=== PATIENT | female | born 1940 | race Caucasian/White ===

== ENCOUNTER 2017-06-30 11:22 | Emergency (ER) | payer MEDICARE ==
[~2017-06-30] VITALS: Ht 157.5 cm; Wt 50.0 kg
[~2017-06-30 11:22] MED LIST: (None)10 MG OR; ADVIL200 MG PO; ALLERGY RELIEF25 MG PO; ALTACE10 MG OR; AMBIEN10 MG OR; AMLODIPINE BESYL5 MG PO; AMLODIPINE2.5 MG PO; ANTI-DIARRHE2 M1 PO; ANTI-DIARRHEAL2 MG PO; APRESOLINE25 MG/TAB PO; ASPIRIN LOW DOS81 M1 PO; ASPIRIN LOW DOS81 M2 PO; ASPIRIN325 MG PO; ASPIRIN81 MG PO; ATENOL/CHLOR1 TA2 PO; ATENOLOL25 MG PO; ATENOLOL50 MG PO; ATORVASTATIN CA20 MG PO; B-12-SL1000 MCG SL; BENTYL10 MG PO; CHERATUSSIN PO; CHLORTHALID25 MG PO; CHOLESTYRAMINE4 G1 PO; CIPROFLOXACN500 MG PO; CLARITIN10 M1 PO; CLONIDINE0.1 MG PO; CLOPIDOGREL75 MG PO; COZAAR50 MG PO; FIBER SELECT GUMMIES OR; FIBER SELECT GUMMIES PO; FLAGYL500 MG PO; FLORASTOR250 M1 PO; HYDROCHLOROT12.5 MG PO; HYDROCHLOROT25 MG PO; HYDROXYZ HCL25 MG PO; IMODIUM2 MG PO; IRON325 MG PO; LISINOP/HCTZ1 TA1 PO; LISINOP/HCTZ1 TAB OR; LISINOP/HCTZ1 TAB PO; LISINOPRIL10 MG PO; LISINOPRIL20 M1 PO; LISINOPRIL20 MG PO; LOMOTIL2.5 MG PO; LORTAB 5 OR; LORTAB 7.57.5 MG PO; LORTAB5 PO; LOSARTAN POT25 MG PO; MELOXICAM7.5 MG PO; METRONIDAZOL500 MG PO; MULT VITAMI1 OR; NEXIUM40 M1 PO; OYSTER SHELL C500 M1 PO; PERCOCET 10/31 COMBO PO; PRILOSEC20 MG/CAP PO; PROBIOTIC PO; PROMETHAZINE25 MG OR; SOLU-MEDROL125 MG IM; TRAMADOL HYDROC50 MG PO; TRIAMCINOLON0.11 EX; ULTRAM50 M1 PO; VANCOCIN HCL125 MG OR; VITAMIN D2000 UNI1 PO; XARELTO10 MG PO; ZESTRIL10 M1 PO; ZYRTEC10 MG PO
[2017-06-30 11:55] LABS: HEMATOCRIT 42.2 % (37.0-47.0); HEMOGLOBIN 14.4 g/dl (12.0-16.0); IMMATURE GRANULOCYTES 0.4 % (0.0-1.0); MEAN CELL VOLUME 86.8 fL CALC (80.0-100.0); MEAN CORPUSCULAR HGB 29.6 pG CALC (26.0-32.0); MEAN CORPUSCULAR HGB CONC 34.1 g/L CALC (32.0-36.0); NEUT# 4.97 thou/uL (2.00-7.15); RED BLOOD COUNT 4.86 mill/uL (4.20-5.60); RED CELL DISTRI WIDTH 13.6 % (11.5-15.5)
[2017-06-30 12:08] LABS: ALBUMIN 4.8 g/dL (3.2-5.0); ALKALINE PHOSPHATASE 129 u/l (38-126); ANION GAP 18 (6-22 (CALC)); BILIRUBIN, TOTAL 0.7 mg/dL (0.0-1.4); BUN 16 mg/dL (8-23); BUN/CREATININE RATIO 20 (12-20 (CALC)); CALCIUM 10.2 mg/dL (8.4-10.2); CARBON DIOXIDE 22 mmol/l (22-30); CHLORIDE 103 mmol/l (95-108); CREATININE 0.8 mg/dL (0.5-1.0); GFR > 60 ML/MIN (>=60 (CALC)); GFR FOR AFR.AMER. > 60 ML/MIN (>=60 (CALC)); GLUCOSE 97 mg/dL (82-115); POTASSIUM 3.7 mmol/l (3.5-5.1); SGOT/AST 27 u/l (9-36); SGPT/ALT 28 u/l (11-66); SODIUM 139 mmol/l (137-146); TOTAL PROTEIN 8.3 g/dL (6.3-8.2)
[2017-06-30 12:20] LABS: MYOGLOBIN 17 ng/mL (0 - 62)
[2017-06-30 14:23] VITALS: BP 226/106
== END 2017-06-30 14:23 | disposition home or self-care (01) ==
LOC: ED 11:22
PROVIDERS: Emergency Medicine
DX: I10 Essential (primary) hypertension (principal); R94.31 Abnormal electrocardiogram [ECG] [EKG]; R01.1 Cardiac murmur, unspecified; Z91.14 Patient's other noncompliance with medication regimen; Z86.73 Personal history of transient ischemic attack (TIA), and cerebral infarction without residual deficits

== ENCOUNTER 2018-04-10 19:32 | Emergency (ER) | payer MEDICARE ==
[~2018-04-10] VITALS: Ht 157.5 cm; Wt 63.0 kg
[2018-04-10] MEDS ORDERED: AMLODIPINE5 MG PO (19:44)
[2018-04-10] MEDS ORDERED: CHLORTHALID25 MG PO (19:44)
[2018-04-10 20:34] VITALS: BP 128/78
== END 2018-04-10 20:35 | disposition home or self-care (01) ==
LOC: ED 19:32
DX: S90.01XA Contusion of right ankle, initial encounter (principal); X58.XXXA Exposure to other specified factors, initial encounter; M79.604 Pain in right leg

== ENCOUNTER → 2019-01-21 | Outpatient (REF) | payer MEDICARE ==
[~2019-01-21] MED LIST changes: +AMLODIPINE5 MG PO
[2019-01-21 08:55] LABS: ALBUMIN 4.4 g/dL (3.2-5.0); ALKALINE PHOSPHATASE 114 u/l (38-126); ANION GAP 15 (6-22 (CALC)); BILIRUBIN, TOTAL 0.8 mg/dL (0.0-1.4); BUN 16 mg/dL (8-23); BUN/CREATININE RATIO 20 (12-20 (CALC)); CALCULATED LDLCHOLESTEROL 129 mg/dL (62-129 (CALC)); CARBON DIOXIDE 26 mmol/l (22-30); CHLORIDE 104 mmol/l (95-108); CHOLESTEROL HDL RATIO 3.3 (<4.4 (CALC)); CREATININE 0.8 mg/dL (0.5-1.0); GFR > 60 ML/MIN (>=60 (CALC)); GFR FOR AFR.AMER. > 60 ML/MIN (>=60 (CALC)); HDL CHOLESTEROL 68 mg/dL (>=40); POTASSIUM 4.1 mmol/l (3.5-5.1); SGOT/AST 18 u/l (9-36); SODIUM 141 mmol/l (137-146); TOTAL CHOLESTEROL 226 mg/dl (0-199); TOTAL PROTEIN 7.2 g/dL (6.3-8.2); TOTAL TRIGLYCERIDES 146 mg/dl (30-149); VLDL CHOLESTROL 29 mg/dl (0-48 (CALC))
[2019-01-21 09:23] LABS: TSH, 3RD GENERATION 2.76 uIU/mL (0.47 - 4.68)
== END | disposition home or self-care (01) ==
LOC: LAB 07:18
PROVIDERS: ATTEND Internal Medicine
DX: E55.9 Vitamin D deficiency, unspecified (principal); E78.00 Pure hypercholesterolemia, unspecified

== ENCOUNTER 2019-11-05 18:31 | Emergency (ER) | payer MEDICARE ==
[~2019-11-05] VITALS: Ht 157.5 cm; Wt 80.0 kg
[2019-11-05 19:13] LABS: URINE BILIRUBIN - DIPSTICK NEGATIVE (NEGATIVE); URINE BLOOD DIPSTICK SMALL (NEGATIVE); URINE COLOR YELLOW; URINE GLUCOSE - DIPSTICK NEGATIVE (NEGATIVE); URINE KETONE 15 mg/dL (NEGATIVE); URINE NITRITE - DIPSTICK NEGATIVE (Negative); URINE PH 6.5 (4.5-8.0); URINE PROTEIN - DIPSTICK TRACE mg/dL (NEG-TRACE); URINE UROBILINOGEN - DIPSTICK 0.2 E.U./dL (0.2)
[2019-11-05 19:20] LABS: URINE LEUK ESTERASE MODERATE (NEGATIVE)
[2019-11-05 19:27] LABS: URINE SQUAMOUS EPITHELIAL CELL FEW EPI/hpf (0-FEW); URINE WBC 20-50 WBC/hpf (0-5)
[2019-11-05 19:28] LABS: URINE BACTERIA MANY hpf
[2019-11-05] MEDS ORDERED: TOPROL XL25 MG PO (19:32)
[2019-11-05] MEDS ORDERED: KEFLEX500 M1 PO (19:54)
[2019-11-05 20:10] VITALS: BP 127/75
== END 2019-11-05 20:10 | disposition home or self-care (01) ==
LOC: ED 18:31
DX: N39.0 Urinary tract infection, site not specified (principal); I10 Essential (primary) hypertension; B96.20 Unspecified Escherichia coli [E. coli] as the cause of diseases classified elsewhere

== ENCOUNTER 2021-02-12 15:41 | Emergency (ER) | payer MEDICARE ==
[~2021-02-12] VITALS: Ht 160 cm; Wt 61.3 kg
[~2021-02-12 15:41] MED LIST changes: +KEFLEX500 M1 PO; +TOPROL XL25 MG PO
[2021-02-12 16:35] LABS: HEMATOCRIT 42.2 % (37.0-47.0); IMMATURE GRANULOCYTES 0.8 % (0.0-5.0); MEAN CELL VOLUME 92.7 fL CALC (80.0-100.0); MEAN CORPUSCULAR HGB 30.8 pG CALC (26.0-32.0); MEAN CORPUSCULAR HGB CONC 33.2 g/dL CAL (32.0-36.0); NEUT# 5.93 thou/uL (2.00-7.15); RED BLOOD COUNT 4.55 mill/uL (4.20-5.60)
[2021-02-12 16:46] LABS: ALBUMIN 4.9 g/dL (3.2-5.0); ALKALINE PHOSPHATASE 123 u/l (38-126); ANION GAP 17 (6-22 (CALC)); BILIRUBIN, TOTAL 0.7 mg/dL (0.0-1.4); BUN 24 mg/dL (8-23); BUN/CREATININE RATIO 19 (12-20 (CALC)); CARBON DIOXIDE 19 mmol/l (22-30); CHLORIDE 104 mmol/l (95-108); CREATININE 1.3 mg/dL (0.5-1.0); GFR 40 ML/MIN (>=60 (CALC)); GFR FOR AFR.AMER. 48 ML/MIN (>=60 (CALC)); POTASSIUM 4.3 mmol/l (3.5-5.1); SGOT/AST 25 u/l (9-36); SODIUM 136 mmol/l (137-146); TOTAL PROTEIN 8.5 g/dL (6.3-8.2)
[2021-02-12 18:29] VITALS: BP 123/75
[2021-02-12 18:51] LABS: URINE BILIRUBIN - DIPSTICK NEGATIVE (NEGATIVE); URINE BLOOD DIPSTICK NEGATIVE (NEGATIVE); URINE COLOR YELLOW; URINE GLUCOSE - DIPSTICK NEGATIVE (NEGATIVE); URINE KETONE NEGATIVE (NEGATIVE); URINE LEUK ESTERASE NEGATIVE (NEGATIVE); URINE PH 5.5 (4.5-8.0); URINE PROTEIN - DIPSTICK NEGATIVE (NEG-TRACE); URINE SPECIFIC GRAVITY >=1.030; URINE UROBILINOGEN - DIPSTICK 0.2 E.U./dL (0.2)
[2021-02-12 18:57] LABS: URINE NITRITE - DIPSTICK NEGATIVE (Negative)
== END 2021-02-12 18:33 | disposition left against medical advice (07) ==
LOC: ED 15:41
PROVIDERS: Family Medicine
DX: R07.89 Other chest pain (principal); R55 Syncope and collapse; I10 Essential (primary) hypertension; Z91.19 Patient's noncompliance with other medical treatment and regimen

== ENCOUNTER 2021-10-18 10:56 | Observation (INO) | payer MEDICARE ==
[~2021-10-18] VITALS: Ht 160 cm; Wt 57.0 kg
[~2021-10-18 10:56] MED LIST changes: -AMLODIPINE5 MG PO; +KEFLEX500 MG PO; +NORVASC5 M1 PO
[2021-10-18 11:50] LABS: HEMATOCRIT 43.2 % (37.0-47.0); HEMOGLOBIN 14.4 g/dl (12.0-16.0); IMMATURE GRANULOCYTES 0.2 % (0.0-5.0); MEAN CELL VOLUME 92.3 fL CALC (80.0-100.0); MEAN CORPUSCULAR HGB 30.8 pG CALC (26.0-32.0); MEAN CORPUSCULAR HGB CONC 33.3 g/dL CAL (32.0-36.0); NEUT# 13.49 thou/uL (2.00-7.15); RED BLOOD COUNT 4.68 mill/uL (4.20-5.60); RED CELL DISTRI WIDTH 12.4 % (11.5-15.5)
[2021-10-18 12:04] LABS: ALBUMIN 4.6 g/dL (3.2-5.0); ALKALINE PHOSPHATASE 158 u/l (38-126); BUN 15 mg/dL (8-23); BUN/CREATININE RATIO 8 (12-20 (CALC)); CHLORIDE 102 mmol/l (95-108); CREATININE 1.8 mg/dL (0.5-1.0); GFR 27 ML/MIN (>=60 (CALC)); GFR FOR AFR.AMER. 33 ML/MIN (>=60 (CALC)); SGOT/AST 19 u/l (9-36); SODIUM 137 mmol/l (137-146); TOTAL PROTEIN 8.4 g/dL (6.3-8.2)
[2021-10-18 12:05] LABS: ANION GAP 20 (6-22 (CALC)); CARBON DIOXIDE 19 mmol/l (22-30); POTASSIUM 3.9 mmol/l (3.5-5.1)
[2021-10-18 14:11] LABS: URINE BLOOD DIPSTICK NEGATIVE (NEGATIVE); URINE COLOR YELLOW; URINE GLUCOSE - DIPSTICK NEGATIVE (NEGATIVE); URINE KETONE 40 mg/dL (NEGATIVE); URINE LEUK ESTERASE NEGATIVE (NEGATIVE); URINE PROTEIN - DIPSTICK NEGATIVE (NEG-TRACE); URINE SPECIFIC GRAVITY >=1.030; URINE UROBILINOGEN - DIPSTICK 0.2 E.U./dL (0.2)
[2021-10-18 14:14] LABS: URINE BILIRUBIN - DIPSTICK NEGATIVE (NEGATIVE); URINE NITRITE - DIPSTICK NEGATIVE (Negative)
[2021-10-18 19:07] VITALS: BP 123/63
[2021-10-19] VITALS: BP 127/64
[2021-10-19 01:38] LABS: ANION GAP 14 (6-22 (CALC)); BUN 18 mg/dL (8-23); BUN/CREATININE RATIO 17 (12-20 (CALC)); CARBON DIOXIDE 17 mmol/l (22-30); CHLORIDE 109 mmol/l (95-108); GFR 53 ML/MIN (>=60 (CALC)); GFR FOR AFR.AMER. > 60 ML/MIN (>=60 (CALC)); POTASSIUM 3.4 mmol/l (3.5-5.1); SODIUM 137 mmol/l (137-146)
[2021-10-19 01:40] LABS: HEMOGLOBIN 12.5 g/dl (12.0-16.0); IMMATURE GRANULOCYTES 0.3 % (0.0-5.0); MEAN CELL VOLUME 89.4 fL CALC (80.0-100.0); MEAN CORPUSCULAR HGB 30.9 pG CALC (26.0-32.0); MEAN CORPUSCULAR HGB CONC 34.6 g/dL CAL (32.0-36.0); NEUT# 6.91 thou/uL (2.00-7.15); RED BLOOD COUNT 4.04 mill/uL (4.20-5.60); RED CELL DISTRI WIDTH 12.2 % (11.5-15.5)
[2021-10-19 01:43] LABS: HEMATOCRIT 36.1 % (37.0-47.0)
[2021-10-19 04:00] VITALS: BP 119/67
[2021-10-19 05:45] VITALS: BP 133/73
[2021-10-19] MEDS ORDERED: ALDACTONE25 MG PO (07:20)
[2021-10-19] MEDS ORDERED: ATENOLOL25 MG PO (07:20)
[2021-10-19] MEDS ORDERED: SINGULAIR10 MG PO (07:21)
[2021-10-19 07:52] VITALS: BP 149/84
[2021-10-19 10:56] VITALS: BP 135/75
== END 2021-10-19 12:24 | disposition home or self-care (01) ==
LOC: ED 10:56 → ED-I 11:49 → ED 15:49 → MS2 15:50
PROVIDERS: Family Medicine; ADMIT Internal Medicine; ATTEND Internal Medicine
DX: E86.0 Dehydration (principal); D72.829 Elevated white blood cell count, unspecified; I49.9 Cardiac arrhythmia, unspecified; N28.9 Disorder of kidney and ureter, unspecified; R19.7 Diarrhea, unspecified; I10 Essential (primary) hypertension; M15.9 Polyosteoarthritis, unspecified; Z86.73 Personal history of transient ischemic attack (TIA), and cerebral infarction without residual deficits; Z20.822 Contact with and (suspected) exposure to COVID-19
CPT/HCPCS: G0378

== ENCOUNTER 2022-06-13 07:07 | Emergency (ER) | payer MEDICARE ==
[~2022-06-13] VITALS: Ht 160 cm; Wt 59.0 kg
[2022-06-13] VITALS (7 sets, daily range): BP systolic 86–152; BP diastolic 54–82
[~2022-06-13 07:07] MED LIST changes: +ALDACTONE25 MG PO; +SINGULAIR10 MG PO
[2022-06-13 07:46] LABS: HEMATOCRIT 41.9 % (37.0-47.0); HEMOGLOBIN 13.9 g/dl (12.0-16.0); IMMATURE GRANULOCYTES 0.8 % (0.0-5.0); MEAN CELL VOLUME 91.9 fL CALC (80.0-100.0); MEAN CORPUSCULAR HGB 30.5 pG CALC (26.0-32.0); MEAN CORPUSCULAR HGB CONC 33.2 g/dL CAL (32.0-36.0); NEUT# 4.99 thou/uL (2.00-7.15); RED BLOOD COUNT 4.56 mill/uL (4.20-5.60); RED CELL DISTRI WIDTH 12.7 % (11.5-15.5)
[2022-06-13 08:02] LABS: ALBUMIN 4.6 g/dL (3.2-5.0); CREATININE 1.1 mg/dL (0.5-1.0); POTASSIUM 4.2 mmol/l (3.5-5.1); TOTAL PROTEIN 7.9 g/dL (6.3-8.2)
[2022-06-13 08:03] LABS: BILIRUBIN, TOTAL 0.9 mg/dL (0.0-1.4)
[2022-06-13 08:32] LABS: URINE BILIRUBIN - DIPSTICK NEGATIVE (NEGATIVE); URINE BLOOD DIPSTICK TRACE-INTACT (NEGATIVE); URINE COLOR YELLOW; URINE GLUCOSE - DIPSTICK NEGATIVE (NEGATIVE); URINE KETONE 40 mg/dL (NEGATIVE); URINE LEUK ESTERASE NEGATIVE (NEGATIVE); URINE PROTEIN - DIPSTICK NEGATIVE (NEG-TRACE); URINE SPECIFIC GRAVITY 1.025; URINE UROBILINOGEN - DIPSTICK 0.2 E.U./dL (0.2)
[2022-06-13 08:37] LABS: URINE NITRITE - DIPSTICK NEGATIVE (Negative)
== END 2022-06-13 09:36 | disposition home or self-care (01) ==
LOC: ED 07:07
PROVIDERS: Family Medicine
DX: U07.1 COVID-19 (principal); R50.9 Fever, unspecified; R05.9 Cough, unspecified; I10 Essential (primary) hypertension; Z86.73 Personal history of transient ischemic attack (TIA), and cerebral infarction without residual deficits

== ENCOUNTER 2023-04-27 11:05 | Emergency (ER) | payer MEDICARE ==
[~2023-04-27] VITALS: Ht 160 cm; Wt 61.0 kg
[2023-04-27 11:26] VITALS: BP 167/94
[2023-04-27 11:30] VITALS: BP 156/86
[2023-04-27 11:46] VITALS: BP 127/62
[2023-04-27 12:01] VITALS: BP 139/81
[2023-04-27 12:33] LABS: URINE BILIRUBIN - DIPSTICK NEGATIVE (NEGATIVE); URINE BLOOD DIPSTICK SMALL (NEGATIVE); URINE COLOR YELLOW; URINE GLUCOSE - DIPSTICK NEGATIVE (NEGATIVE); URINE KETONE NEGATIVE (NEGATIVE); URINE LEUK ESTERASE NEGATIVE (NEGATIVE); URINE PH 6.5 (4.5-8.0); URINE PROTEIN - DIPSTICK NEGATIVE (NEG-TRACE); URINE UROBILINOGEN - DIPSTICK 0.2 E.U./dL (0.2)
[2023-04-27 12:41] LABS: URINE NITRITE - DIPSTICK POSITIVE (Negative)
[2023-04-27 12:42] LABS: URINE BACTERIA MANY hpf; URINE EPITHELIAL CELLS FEW EPI/hpf (0-FEW)
[2023-04-27] MEDS ORDERED: KEFLEX500 MG PO (13:58)
[2023-04-27] MEDS ORDERED: PREDNISONE20 MG PO (13:58)
[2023-04-27 14:06] VITALS: BP 139/81
== END 2023-04-27 14:11 | disposition home or self-care (01) ==
LOC: ED 11:05
PROVIDERS: Nurse Practitioner
DX: N39.0 Urinary tract infection, site not specified (principal); M47.816 Spondylosis without myelopathy or radiculopathy, lumbar region; I10 Essential (primary) hypertension; Z87.440 Personal history of urinary (tract) infections